=== PATIENT | male | born 2000 | race Caucasian/White ===

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

== ENCOUNTER 2020-01-06 16:20 | Emergency (ER) | payer BC, MEDICAID ==
[~2020-01-06] VITALS: Ht 182 cm; Wt 131.0 kg
--- NOTE | 2020-01-06 16:33 | NUR ---
SPRITE GIVEN FOR BLOOD SUGAR OF 81 PER JAMAR'S REQUEST.
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
--- NOTE | 2020-01-06 17:22 | NUR ---
UP AMBULATING TO THE BATHROOM.
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
[2020-01-06 17:30] LABS: BILIRUBIN,URINE NEGATIVE (NEGATIVE); CLARITY,URINE CLEAR; COLOR,URINE YELLOW; GLUCOSE, URINE (UA) NEGATIVE (NEGATIVE); KETONES,URINE NEGATIVE (NEGATIVE); LEUKOCYTE ESTERASE ,URINE NEGATIVE (NEGATIVE); NITRITE,URINE NEGATIVE (NEGATIVE); PH,URINE 6.5 (5-9); PROTEIN,URINE NEGATIVE (NEGATIVE)
[2020-01-06 17:40] LABS: BACTERIA,URINE TRACE /HPF
[2020-01-06 17:41] LABS: HYALINE CASTS, URINE 0-2 /LPF
--- NOTE | 2020-01-06 17:42 | NUR ---
REPORT GIVEN TO HORTENCIA HOOKER.
== END 2020-01-06 18:00 | disposition home or self-care (01) ==
LOC: EDUNIT# 16:20 → ER 16:21
DX: R10.9 Unspecified abdominal pain (principal); M25.562 Pain in left knee; R40.2142 Coma scale, eyes open, spontaneous, at arrival to emergency department; R40.2252 Coma scale, best verbal response, oriented, at arrival to emergency department; R40.2362 Coma scale, best motor response, obeys commands, at arrival to emergency department; F17.290 Nicotine dependence, other tobacco product, uncomplicated; V49.40XA Driver injured in collision with unspecified motor vehicles in traffic accident, initial encounter
CPT/HCPCS: 73562; 74176; 81000

== ENCOUNTER → 2021-11-13 | Outpatient (CLI) | payer BC, OTHER ==
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
== END ==
LOC: RAD 15:24
PROVIDERS: ATTEND Family Medicine
DX: S83.92XA Sprain of unspecified site of left knee, initial encounter (principal); Y93.54 Activity, bowling
CPT/HCPCS: 73562

== ENCOUNTER 2022-03-20 01:01 | Emergency (ER) | payer OTHER ==
[2022-03-20 01:29] VITALS: BP 113/75
[2022-03-20 02:11] LABS: CLARITY,URINE SL CLOUDY; COLOR,URINE ORANGE; GLUCOSE, URINE (UA) NEGATIVE (NEGATIVE); KETONES,URINE TRACE (NEGATIVE); LEUKOCYTE ESTERASE ,URINE NEGATIVE (NEGATIVE); NITRITE,URINE NEGATIVE (NEGATIVE); PROTEIN,URINE 2+ (NEGATIVE)
[2022-03-20 02:16] LABS: BASOPHILS # (AUTO) 0.1 10^3/uL (0.0-0.1); BASOPHILS % (AUTO) 1 % (0-10); EOSINOPHILS % (AUTO) 0 % (0-10); HEMATOCRIT 48 % (40-54); LYMPHOCYTES # (AUTO) 2.6 10^3/uL (1.0-4.0); LYMPHOCYTES % (AUTO) 24 % (12-44); MEAN CORPUSCULAR HEMOGLOBIN 30 pg (25-34); MEAN CORPUSCULAR HGB CONC 35 g/dL (32-36); MEAN CORPUSCULAR VOLUME 86 fL (80-99); MEAN PLATELET VOLUME 10.4 fL (9.0-12.2); MONOCYTES % (AUTO) 9 % (0-12); NEUTROPHILS # (AUTO) 7.4 10^3/uL (1.8-7.8); NEUTROPHILS % (AUTO) 66 % (42-75); PLATELET COUNT 243 10^3/uL (130-400); WHITE BLOOD COUNT 11.1 10^3/uL (4.3-11.0)
[2022-03-20 02:25] LABS: BACTERIA,URINE NEGATIVE /HPF; BILIRUBIN,URINE 1+ (NEGATIVE)
[2022-03-20 02:27] LABS: ALBUMIN 4.7 GM/DL (3.2-4.5); CHLORIDE 100 MMOL/L (98-107)
[2022-03-20 02:28] LABS: POTASSIUM 3.9 MMOL/L (3.6-5.0); SODIUM 140 MMOL/L (135-145)
[2022-03-20 02:29] LABS: CALCIUM 9.8 MG/DL (8.5-10.1)
[2022-03-20 02:30] LABS: GLUCOSE 98 MG/DL (70-105); TOTAL PROTEIN 7.9 GM/DL (6.4-8.2)
[2022-03-20 02:31] LABS: CARBON DIOXIDE 26 MMOL/L (21-32)
[2022-03-20 02:33] LABS: ALKALINE PHOSPHATASE 62 U/L (40-136)
[2022-03-20 02:34] LABS: CREATININE SERUM 1.17 MG/DL (0.60-1.30); GFR ESTIMATED 91
[2022-03-20 02:35] LABS: BUN/CREATININE RATIO 11
[2022-03-20 02:36] LABS: ALANINE AMINOTRANSFERASE 19 U/L (0-55)
[2022-03-20 02:37] LABS: LIPASE 8 U/L (8-78)
[2022-03-20] MEDS ORDERED: LACTATED RINGERS 1,000 ML IV ONE (02:45)
--- NOTE | 2022-03-20 04:32 | ED Abdominal Pain ---
General Chief Complaint: Chest Wall Stated Complaint: RT SIDE & UNDER RIBS PAIN,STS NO FALL Nursing Triage Note: pt presents with right chest wall/rib pain that he reports has been intermittent for two days. reports the pain is worse with deep breathing. denies cough. denies sob. denies n/v/d. Source of Information: Patient Exam Limitations: No Limitations History of Present Illness Date Seen by Provider: Mar 20, 2022 Time Seen by Provider: 01:52 Initial Comments This 21-year-old young man presents to the emergency room with complaints of 2 days of right flank pain that is sharp and stabbing. It is worse with deep breathing. He reports binge drinking a significant amount of alcohol over the past 4 5 days going through stressful life situations. He denies any suicidal or homicidal ideation. He has no nausea, vomiting, diarrhea, or constipation. He denies ever having this pain in the past. Pain seems to come and intermittent waves. He denies fever. Pain is worse when he sits down. Ibuprofen and Tylenol have not been particularly helpful. He has noticed some dark urine recently but no maría hematuria. Allergies and Home Medications Allergies Coded Allergies: No Known Drug Allergies (Unverified , 11/09/10) Patient Home Medication List Home Medication List Reviewed: Yes No Active Prescriptions or Reported Meds Review of Systems Review of Systems Constitutional: no symptoms reported EENTM: No Symptoms Reported Respiratory: See HPI Cardiovascular: No Symptoms Reported Gastrointestinal: See HPI Genitourinary: No Symptoms Reported Musculoskeletal: no symptoms reported Skin: no symptoms reported Psychiatric/Neurological: See HPI Endocrine: No Symptoms Reported Hematologic/Lymphatic: No Symptoms Reported Past Ndqjdub-Ptvvcw-Neyqeh Hx Patient Social History Tobacco Use?: No Substance use?: No Alcohol Use?: Yes Alcohol Frequency: Couple times a week Pt feels they are or have been: No Immunizations Up To Date Influenza Vaccine Up-to-Date: No; Not Current First/Initial COVID19 Vaccinat: unknown date Second COVID19 Vaccination Eko: unknown date Seasonal Allergies Seasonal Allergies: No Past Medical History Surgeries: Yes (DENTAL 01/05/2020) Respiratory: No Cardiac: No Neurological: No Genitourinary: No Gastrointestinal: No Musculoskeletal: No Endocrine: No HEENT: No Cancer: No Psychosocial: No Physical Exam Vital Signs Vital Signs - First Documented Capillary Refill : Height/Weight/BMI Height: '" Weight: 119lbs. oz. 53.165371nn; 39.00 BMI Method:Stated General Appearance: WD/WN, no apparent distress HEENT: PERRL/EOMI, normal ENT inspection Neck: normal inspection Respiratory: chest non-tender, lungs clear, normal breath sounds, no respiratory distress Cardiovascular: regular rate, rhythm, no edema, no murmur Gastrointestinal: normal bowel sounds, soft, tenderness (Tenderness in the right flank and right upper quadrant) Extremities: normal inspection, no pedal edema Neurologic/Psychiatric: no motor/sensory deficits, alert, normal mood/affect, oriented x 3 Skin: normal color, warm/dry Progress/Results/Core Measures Results/Orders Lab Results Laboratory Tests Test 03/20/22 02:09 03/20/22 02:10 Range/Units Urine Color ORANGE Urine Clarity SL CLOUDY Urine pH 6.0 5-9 Urine Specific [place] >=1.030 1.016-1.022 Urine Protein 2+ H NEGATIVE Urine Glucose (UA) NEGATIVE NEGATIVE Urine Ketones TRACE H NEGATIVE Urine Nitrite NEGATIVE NEGATIVE Urine Bilirubin 1+ H NEGATIVE Urine Urobilinogen 1.0 < = 1.0 MG/DL Urine Leukocyte Esterase NEGATIVE NEGATIVE Urine RBC (Auto) TRACE-I H NEGATIVE Urine RBC 2-5 H /HPF Urine WBC NONE /HPF Urine Squamous Epithelial Cells 5-10 /HPF Urine Crystals NONE /LPF Urine Bacteria NEGATIVE /HPF Urine Casts PRESENT /LPF Urine Hyaline Casts 10-25 H /LPF Urine Mucus LARGE H /LPF Urine Culture Indicated NO White Blood Count 11.1 H 4.3-11.0 10^3/uL Red Blood Count 5.60 H 4.30-5.52 10^6/uL Hemoglobin 17.0 13.3-17.7 g/dL Hematocrit 48 40-54 % Mean Corpuscular Volume 86 80-99 fL Mean Corpuscular Hemoglobin 30 25-34 pg Mean Corpuscular Hemoglobin Concent 35 32-36 g/dL Red Cell Distribution Width 12.0 10.0-14.5 % Platelet Count 243 130-400 10^3/uL Mean Platelet Volume 10.4 9.0-12.2 fL Immature Granulocyte % (Auto) 0 % Neutrophils (%) (Auto) 66 42-75 % Lymphocytes (%) (Auto) 24 12-44 % Monocytes (%) (Auto) 9 0-12 % Eosinophils (%) (Auto) 0 0-10 % Basophils (%) (Auto) 1 0-10 % Neutrophils # (Auto) 7.4 1.8-7.8 10^3/uL Lymphocytes # (Auto) 2.6 1.0-4.0 10^3/uL Monocytes # (Auto) 1.0 0.0-1.0 10^3/uL Eosinophils # (Auto) 0.0 0.0-0.3 10^3/uL Basophils # (Auto) 0.1 0.0-0.1 10^3/uL Immature Granulocyte # (Auto) 0.0 0.0-0.1 10^3/uL Sodium Level 140 135-145 MMOL/L Potassium Level 3.9 3.6-5.0 MMOL/L Chloride Level 100 98-107 MMOL/L Carbon Dioxide Level 26 21-32 MMOL/L Anion Gap 14 5-14 MMOL/L Blood Urea Nitrogen 13 7-18 MG/DL Creatinine 1.17 0.60-1.30 MG/DL Estimat Glomerular Filtration Rate 91 BUN/Creatinine Ratio 11 Glucose Level 98 70-105 MG/DL Calcium Level 9.8 8.5-10.1 MG/DL Corrected Calcium 8.5-10.1 MG/DL Total Bilirubin 2.0 H 0.1-1.0 MG/DL Aspartate Amino Transf (AST/SGOT) 15 5-34 U/L Alanine Aminotransferase (ALT/SGPT) 19 0-55 U/L Alkaline Phosphatase 62 40-136 U/L Total Protein 7.9 6.4-8.2 GM/DL Albumin 4.7 H 3.2-4.5 GM/DL Lipase 8 8-78 U/L My Orders Orders - RICH MCCOLLUM MD Cbc With Automated Diff (03/20/22 02:00) Comprehensive Metabolic Panel (03/20/22 02:00) Lipase (03/20/22 02:00) Ua Culture If Indicated (03/20/22 02:00) Ed Iv/Invasive Line Start (03/20/22 02:00) Lactated Ringers (Lr 1000 Ml Iv Solution (03/20/22 02:45) Ct Abd/Pelvis Wo(Kidney Stone) (03/20/22 02:42) Medications Given in ED Current Medications Medications Dose Ordered Sig/Louie Route Start Time Stop Time Status Last Admin Dose Admin Lactated Ringer's 1,000 ml @ 0 mls/hr Q0M ONCE IV 03/20/22 02:45 03/20/22 02:46 DC 03/20/22 02:45 0 MLS/HR Vital Signs/I&O 03/20/22 03/20/22 01:29 01:29 Temp 37.1 Pulse 97 Resp 18 B/P (MAP) 113/75 (88) Pulse Ox 96 O2 Delivery Room Air Room Air Blood Pressure Mean: 88 Progress Progress Note : Progress Note Urine was concentrated with casts and ketones present. Patient was hydrated with IV fluids. He had scant amount of blood in his urine. CT scan was offered to evaluate his gallbladder and for possible presence of ureteral stone. Risks and benefits were discussed and patient elected to proceed with CT scan. No significant pathology was identified. See discharge instructions for further discussion. Patient declined pain medication. Diagnostic Imaging Diagonstic Imaging: CT Plain Films/CT/US/NM/MRI: abdomen, pelvis Comments CT scan viewed by me and report reviewed. See report below: NAME: DILAN VALDIVIA [facility] REC#: [id number] PT STATUS: DEP ER : 2000 PHYSICIAN: RICH MCCOLLUM MD ADMIT DATE: 03/20/22/ER Draft Date of Exam:03/20/22 CT ABD/PELVIS WO(KIDNEY STONE) PROCEDURE: CT urinary tract, rule out kidney stone. TECHNIQUE: Multiple contiguous axial images were obtained through the abdomen and pelvis without the use of intravenous contrast. Auto Exposure Controls were utilized during the CT exam to meet ALARA standards for radiation dose reduction. INDICATION: Flank pain. Comparison with 01/06/2020. FINDINGS: The lung bases are clear. The liver, gallbladder and bile ducts are normal. Pancreas and spleen are normal. Adrenal glands are not enlarged. The kidneys show no evidence of hydronephrosis or calculi. Outlines are smooth. Aorta is normal. Stomach and small bowel are not distended. The colon shows normal stool and gas pattern. Appendix is not dilated. Bladder is not distended. There is no free air or free fluid. No intra-abdominal adenopathy. No bony abnormalities. IMPRESSION: Normal CT abdomen and pelvis. These findings are in agreement with the preliminary report. Dictated on workstation # [id number] Dict: 03/20/22 0629 Trans: 03/20/22 0632 [facility] [id number] Interpreted by: AB RODRIGUEZ MD Departure Impression Primary Impression: Right flank pain Additional Impression: Alcohol dependence, binge pattern Disposition: 01 HOME, SELF-CARE Condition: Improved Departure-Patient Inst. Decision time for Depature: 04:30 Referrals: ZULY GRISSOM MD (PCP/Family) Primary Care Physician Patient Instructions: ALCOHOL AND SUBSTANCE ABUSE, Abdominal Pain, Adult ED Add. Discharge Instructions: Start with a noncarbonated clear liquid diet and adhere to mostly a clear liquid diet for the rest of today. Then gradually advance your diet with small quantities of bland food as tolerated. Refrain from further alcohol use. For abdominal pain you may try Tylenol (acetaminophen) up to 1000 mg every 6 hours as needed. You may additionally try antacid medications such as Pepcid (famotidine), omeprazole, Tums, etc. purchased [id number]. Follow-up with Dr. Grissom as soon as possible. Return to the ER if you have worsening symptoms despite following these instructions. All discharge instructions reviewed with patient and/or family. Voiced understanding. Scripts No Active Prescriptions or Reported Meds Copy Copies To 1: ZULY GRISSOM MD, JOSHUA T MD Mar 20, 2022 04:31
--- NOTE | 2022-03-20 06:33 | Diagnostic Imaging Report ---
PROCEDURE: CT urinary tract, rule out kidney stone. TECHNIQUE: Multiple contiguous axial images were obtained through the abdomen and pelvis without the use of intravenous contrast. Auto Exposure Controls were utilized during the CT exam to meet ALARA standards for radiation dose reduction. INDICATION: Flank pain. Comparison with 01/06/2020. FINDINGS: The lung bases are clear. The liver, gallbladder and bile ducts are normal. Pancreas and spleen are normal. Adrenal glands are not enlarged. The kidneys show no evidence of hydronephrosis or calculi. Outlines are smooth. Aorta is normal. Stomach and small bowel are not distended. The colon shows normal stool and gas pattern. Appendix is not dilated. Bladder is not distended. There is no free air or free fluid. No intra-abdominal adenopathy. No bony abnormalities. IMPRESSION: Normal CT abdomen and pelvis. These findings are in agreement with the preliminary report. Dictated by: Dictated on workstation # [id number]
== END 2022-03-20 04:39 | disposition home or self-care (01) ==
LOC: EDUNIT# 01:01 → ER 01:05
DX: F10.20 Alcohol dependence, uncomplicated (principal); R10.11 Right upper quadrant pain
CPT/HCPCS: 36415; 74176; 80053; 81000; 83690; 85025; 99282

== ENCOUNTER 2022-04-27 20:55 | Emergency (ER) | payer OTHER ==
[~2022-04-27] VITALS: Ht 193 cm; Wt 113.0 kg
[2022-04-27] MEDS ORDERED: KETOROLAC 60 MG/2 ML VIAL IM ONE (23:30)
[2022-04-27] MEDS ORDERED: ORPHENADRINE 60 MG/2 ML (NORFLEX) AMP (ED ONLY) IM ONE (23:30)
[2022-04-27] MEDS ORDERED: methylPREDNISolone 40 MG/ML (DEPO MEDROL) VIAL IM ONE (23:30)
--- NOTE | 2022-04-27 23:31 | ED Back Pain ---
General Chief Complaint: Back Problems Stated Complaint: LOW BACK PAIN Nursing Triage Note: c/o lower back pain after lifting dryer into truck today. Source of Information: Patient Exam Limitations: No Limitations History of Present Illness Date Seen by Provider: Apr 27, 2022 Time Seen by Provider: 23:00 Initial Comments Patient to the ER by private conveyance with his significant other with chief complaint that about noon he was lifting a dryer to help his friend move and he started having some pain in his low back. He had a pinched disc in the past. He is not having any pain radiating away from the side of his right low back. He has taken naproxen 500 mg and ibuprofen 8 oh milligrams without significant relief of pain. He feels stiff and hard to move. Is not having any loss of control of bowel or bladder, saddle anesthesia, numbness, tingling, falls due to weakness. No prior back surgery. He follows with Dr. Grissom for primary care. Allergies and Home Medications Allergies Coded Allergies: No Known Drug Allergies (Unverified , 11/09/10) Patient Home Medication List Home Medication List Reviewed: Yes Cyclobenzaprine HCl (Cyclobenzaprine HCl) 10 Mg Tablet, 10 MG PO Q8H PRN for SPASMS Prescribed by: SHIREEN PENG on 04/27/222331 Naproxen (Naprosyn) 500 Mg Tablet, 500 MG PO BID Prescribed by: SHIREEN PENG on 04/27/222331 Review of Systems Constitutional: No chills, No diaphoresis EENTM: No ear discharge, No ear pain Respiratory: No cough, No short of breath Cardiovascular: No chest pain, No edema Gastrointestinal: No see HPI, No abdominal pain Genitourinary: No frequency, No pain Past Pzgtbyx-Zbzibd-Jjucle Hx Patient Social History Tobacco Use?: No Substance use?: No Alcohol Use?: No Pt feels they are or have been: No Immunizations Up To Date First/Initial COVID19 Vaccinat: unknown date Second COVID19 Vaccination Keo: unknown date Third COVID19 Vaccination Date: unknown date Seasonal Allergies Seasonal Allergies: No Past Medical History Surgery/Hospitalization HX: depression, ch lower back pain/slipped disc. Surgeries: Yes (DENTAL 01/05/2020) Respiratory: No Cardiac: No Neurological: No Genitourinary: No Gastrointestinal: No Musculoskeletal: No Endocrine: No HEENT: No Cancer: No Psychosocial: No Physical Exam Vital Signs Vital Signs - First Documented 04/27/22 22:38 Temp 37.0 Pulse 62 Resp 16 B/P (MAP) 125/71 (89) Pulse Ox 98 O2 Delivery Room Air Capillary Refill : Less Than 3 Seconds Height, Weight, BMI Height: '" Weight: 119lbs. oz. 53.915118gx; 30.00 BMI Method:Stated General Appearance: WD/WN, Mild Distress HEENT: PERRL/EOMI, Pharynx Normal Neck: Full Range of Motion, Normal Inspection Cardiovascular: Regular Rate, Rhythm, Normal Peripheral Pulses Respiratory: No Accessory Muscle Use, No Respiratory Distress Gastrointestinal: Normal Bowel Sounds, No Organomegaly Extremity: Normal Capillary Refill, Normal Inspection, No Pedal Edema Neurologic/Psychiatric: Alert, Oriented x3, No Motor/Sensory Deficits Skin: Normal Color, Warm/Dry Progress/Results/Core Measures Results/Orders My Orders Orders - SHIREEN PENG Ketorolac Injection (Toradol Injection) (04/27/22 23:30) Orphenadrine Inj (Ed Only) (Norflex Inje (04/27/22 23:30) Methylprednisolone Acetate Inj (Depo-Med (04/27/22 23:30) Medications Given in ED Current Medications Medications Dose Ordered Sig/Louie Route Start Time Stop Time Status Last Admin Dose Admin Ketorolac Tromethamine 60 mg ONCE ONCE IM 04/27/22 23:30 04/27/22 23:31 DC 04/27/22 23:33 60 MG Methylprednisolone Acetate 40 mg ONCE ONCE IM 04/27/22 23:30 04/27/22 23:31 DC 04/27/22 23:32 40 MG Orphenadrine Citrate 60 mg ONCE ONCE IM 04/27/22 23:30 04/27/22 23:31 DC 04/27/22 23:32 60 MG Vital Signs/I&O 04/27/22 04/27/22 04/27/22 22:38 23:33 23:43 Temp 37.0 37.0 36.7 Pulse 62 68 Resp 16 14 B/P (MAP) 125/71 (89) 118/97 Pulse Ox 98 99 O2 Delivery Room Air Room Air Blood Pressure Mean: 89 Progress Progress Note : Time: 23:27 Progress Note Toradol, Norflex, steroid injection and follow-up in a week. We will have him encouraged to go to physical therapy and/or chiropractory. We will give him some work restrictions and a couple days off from work. Patient is okay with this plan. Return precautions were given. Departure Impression Primary Impression: Lumbago without sciatica Qualified Codes: M54.50 - Low back pain, unspecified Disposition: 01 HOME, SELF-CARE Condition: Stable Departure-Patient Inst. Decision time for Depature: 23:28 Referrals: ZULY GRISSOM MD (PCP/Family) Primary Care Physician Patient Instructions: Low Back Pain (DC) Add. Discharge Instructions: Ice 20 minutes on every 2 hours as needed for pain in your low back for the first 2 to 3 days. Heating pads and topical creams such as icy hot or Biofreeze can be helpful. A back brace to be worn on all days that helps can be helpful for back pain. Continue to take naproxen 500 mg twice a day until your pain is improved. It takes 4 to 5 days to get this medication built up in your system to a full dose. Tylenol 1000 mg every 8 hours as needed for pain. Cyclobenzaprine 1 tablet every 8 hours as needed for muscle spasms in your back. Follow-up with either a chiropractor, physical therapy or both. Physical therapy be can reached at [phone]. All discharge instructions reviewed with patient and/or family. Voiced understanding. Scripts Cyclobenzaprine HCl (Cyclobenzaprine HCl) 10 Mg Tablet 10 MG PO Q8H PRN for SPASMS, #20 TAB 0 Refills Prov: SHIREEN PENG 04/27/22 Naproxen (Naprosyn) 500 Mg Tablet 500 MG PO BID, #30 TAB 0 Refills Prov: SHIREEN PENG 04/27/22 Work/School Note: Work Release Form Date Seen in the Emergency Department: Apr 27, 2022 Return to Work: May 01, 2022 Restrictions: Need Release from Doctor Other Restrictions Listed Below: 20 pound weight restriction until 05/06/2022. Restrictions: 40 pound weight restriction until 05/13/2022. Copy Copies To 1: ZULY GRISSOM MD, TITUS J Apr 27, 2022 23:31
[2022-04-27] MEDS ORDERED: CYCL10TA25 PO (23:32)
[2022-04-27] MEDS ORDERED: NAPR-1071 PO (23:32)
[2022-04-27 23:43] VITALS: BP 118/97
== END 2022-04-27 23:43 | disposition home or self-care (01) ==
LOC: EDUNIT# 20:55 → ER 20:57
DX: M54.50 Low back pain, unspecified (principal); Z87.39 Personal history of other diseases of the musculoskeletal system and connective tissue; X50.0XXA Overexertion from strenuous movement or load, initial encounter
CPT/HCPCS: 99284

== ENCOUNTER 2022-12-07 22:16 | Emergency (ER) | payer OTHER ==
[~2022-12-07] VITALS: Ht 190.5 cm; Wt 127.0 kg
[~2022-12-07 22:16] MED LIST changes: +CYCL10TA25 PO; -IOHEXOL 350 MG/ML 100 ML (OMNIPAQUE 350) VIAL IV ONE; +NAPR-1071 PO; -NS 250 ML (IVPB) BAG IV ONE
[2022-12-07 22:20] VITALS: BP 150/103
[2022-12-07] MEDS ORDERED: SERT-412 PO (22:25)
--- NOTE | 2022-12-07 22:30 | ED Abdominal Pain ---
General Chief Complaint: Abdominal/GI Problems Stated Complaint: RIGHT FLANK/LOWER ABD PAIN Nursing Triage Note: c/o intermittant stabbing mid abdominal pain x2 weeks. right flank pain x2 months. History of Present Illness Date Seen by Provider: Dec 07, 2022 Time Seen by Provider: 22:30 Initial Comments Patient is a 22-year-old male who presents to the emergency room with a chief complaint of chronic right flank pain over the last couple of months and mid abdominal pain and left upper quadrant abdominal pain that has been coming on over the last 2 weeks. Patient states the pain in his mid abdomen is worse specifically after eating. He states that every time he eats he feels like he wants to vomit. He states that he is lost about 15 pounds in 1 to 1-1/2 weeks. He denies diarrhea, black or bloody stool. No darker than normal urine or blood in his urine. No fevers or chills. He has been seen for this in the past by his primary care doctor. He does vape, does not smoke cigarettes. He takes Aleve and ibuprofen intermittently for discomfort. His last dose of Aleve was 500 mg at around noon today. Nothing makes his symptoms any better. Was concerned because the flank pain came back today. He has no history of known kidney stone. States when he was in the emergency room a few months ago with similar complaints he had blood in his urine. No evidence of infection. He is concerned that he might be dehydrated however no nausea or vomiting currently. Timing/Duration: Other (Months) Severity/Quality: Moderate Location: Epigastric, Other (Right flank) Radiation: No Radiation Activities at Onset: Other (Eating) Associated Symptoms: Nausea/Vomiting (Nausea without vomiting), Other (Flank pain) Allergies and Home Medications Allergies Coded Allergies: No Known Drug Allergies (Unverified , 11/09/10) Patient Home Medication List Home Medication List Reviewed: Yes Sertraline HCl (Sertraline HCl) 25 Mg Tablet, Unknown Dose PO, (Reported) Entered as Reported by: MANDA FRANKS on 12/07/222224 Last Action: New Order Discontinued Medications Cyclobenzaprine HCl (Cyclobenzaprine HCl) 10 Mg Tablet, 10 MG PO Q8H PRN for SPASMS Discontinued Reason: No Longer Taking Prescribed by: SHIREEN PENG on 04/27/22 2332 Last Action: Discontinued Naproxen (Naprosyn) 500 Mg Tablet, 500 MG PO BID Discontinued Reason: No Longer Taking Prescribed by: SHIREEN PENG on 04/27/22 2332 Last Action: Discontinued Review of Systems Review of Systems Constitutional: see HPI EENTM: No Symptoms Reported Respiratory: No Symptoms Reported Cardiovascular: No Symptoms Reported Gastrointestinal: Abdominal Pain Genitourinary: No Symptoms Reported Musculoskeletal: other (Flank pain) Skin: no symptoms reported Psychiatric/Neurological: No Symptoms Reported All Other Systems Reviewed Negative Unless Noted: Yes Past Vtvlxyg-Wiogfo-Vtypkh Hx Patient Social History Tobacco Use?: No Substance use?: No Alcohol Use?: Yes Alcohol Frequency: Once in a while Pt feels they are or have been: No Immunizations Up To Date First/Initial COVID19 Vaccinat: x2 Second COVID19 Vaccination Keo: unknown date Third COVID19 Vaccination Date: unknown date Seasonal Allergies Seasonal Allergies: No Past Medical History Surgery/Hospitalization HX: depression, ch lower back pain/slipped disc. Surgeries: Yes (DENTAL 01/05/2020) Respiratory: No Cardiac: No Neurological: No Genitourinary: No Gastrointestinal: No Musculoskeletal: No Endocrine: No HEENT: No Cancer: No Psychosocial: No Physical Exam Vital Signs Vital Signs - First Documented 12/07/22 22:20 Temp 36.6 Pulse 85 Resp 16 B/P (MAP) 150/103 (119) Pulse Ox 100 O2 Delivery Room Air Capillary Refill : Less Than 3 Seconds Height/Weight/BMI Height: '" Weight: 119lbs. oz. 53.165974yk; 34.00 BMI Method:Stated General Appearance: WD/WN, no apparent distress Neck: normal inspection Respiratory: lungs clear, normal breath sounds, no respiratory distress, no accessory muscle use Cardiovascular: regular rate, rhythm Gastrointestinal: normal bowel sounds, non tender, soft Extremities: normal range of motion, non-tender, normal inspection, normal capillary refill Back: no CVA tenderness Neurologic/Psychiatric: alert, normal mood/affect, oriented x 3 Skin: normal color, warm/dry Progress/Results/Core Measures Results/Orders Lab Results Laboratory Tests Test 12/07/22 22:25 Range/Units Urine Color YELLOW Urine Clarity CLEAR Urine pH 6.0 5-9 Urine Specific [place] >=1.030 1.016-1.022 Urine Protein NEGATIVE NEGATIVE Urine Glucose (UA) NEGATIVE NEGATIVE Urine Ketones NEGATIVE NEGATIVE Urine Nitrite NEGATIVE NEGATIVE Urine Bilirubin NEGATIVE NEGATIVE Urine Urobilinogen 0.2 < = 1.0 MG/DL Urine Leukocyte Esterase NEGATIVE NEGATIVE Urine RBC (Auto) NEGATIVE NEGATIVE Urine RBC NONE /HPF Urine WBC 2-5 /HPF Urine Squamous Epithelial Cells 0-2 /HPF Urine Crystals NONE /LPF Urine Bacteria TRACE /HPF Urine Casts NONE /LPF Urine Mucus SMALL H /LPF Urine Culture Indicated NO My Orders Orders - DOROTHY HOBBS MD Ua Culture If Indicated (12/07/22 22:40) Ondansetron Oral Dissolve Tab (Zofran (12/07/22 22:40) Pantoprazole Tablet (Protonix Tablet) (12/07/22 22:45) Medications Given in ED Current Medications Medications Dose Ordered Sig/Louie Route Start Time Stop Time Status Last Admin Dose Admin Pantoprazole Sodium 40 mg ONCE ONCE PO 12/07/22 22:45 12/07/22 22:46 DC 12/07/22 22:51 40 MG Vital Signs/I&O 12/07/22 22:20 Temp 36.6 Pulse 85 Resp 16 B/P (MAP) 150/103 (119) Pulse Ox 100 O2 Delivery Room Air Blood Pressure Mean: 119 Departure Impression Primary Impression: Abdominal pain Qualified Codes: R10.9 - Unspecified abdominal pain Additional Impression: Dyspepsia Disposition: 01 HOME, SELF-CARE Condition: Stable Departure-Patient Inst. Decision time for Depature: 23:02 Referrals: ZULY GRISSOM MD (PCP/Family) Primary Care Physician Patient Instructions: Dyspepsia (DC) Add. Discharge Instructions: Start taking an fcdm-nrj-hdkinag acid doctor of medicine such as generic Prilosec or Pepcid. Pick 1 and please follow packaging instructions. Zofran/ondansetron 4 mg tablets 1 every 8 hours as needed for nausea. You should stop vaping. If you are going to take ibuprofen or Aleve, stick to one of the other and always take this medication with food. If you develop a fever, worsening pain, blood in your stool please return to the emergency room for reevaluation. Please call your primary care doctor's office on Friday for a follow-up appointment for further evaluation and management of these issues. Scripts Ondansetron (Ondansetron Odt) 4 Mg Tab.rapdis 4 MG PO Q8H PRN for NAUSEA/VOMITING, #10 TAB 0 Refills Prov: DOROTHY HOBBS MD 12/07/22 Copy Copies To 1: ZULY GRISSOM MD, KATHRYN M MD Dec 07, 2022 22:30
[2022-12-07] MEDS ORDERED: ONDANSETRON 4 MG (ZOFRAN) ORAL DISSOLVE TAB PO STA (22:40)
[2022-12-07] MEDS ORDERED: PANTOPRAZOLE 40 MG (PROTONIX) TAB PO ONE (22:45)
[2022-12-07 22:46] LABS: BILIRUBIN,URINE NEGATIVE (NEGATIVE); CLARITY,URINE CLEAR; COLOR,URINE YELLOW; GLUCOSE, URINE (UA) NEGATIVE (NEGATIVE); KETONES,URINE NEGATIVE (NEGATIVE); LEUKOCYTE ESTERASE ,URINE NEGATIVE (NEGATIVE); NITRITE,URINE NEGATIVE (NEGATIVE); PROTEIN,URINE NEGATIVE (NEGATIVE)
[2022-12-07 22:56] LABS: BACTERIA,URINE TRACE /HPF; SQUAMOUS EPITHELIAL CELL,UR 0-2 /HPF
[2022-12-07] MEDS ORDERED: ONDA4TAB11 PO (23:04)
== END 2022-12-07 23:06 | disposition home or self-care (01) ==
LOC: EDUNIT# 22:16 → ER 22:18
DX: R10.13 Epigastric pain (principal); F17.290 Nicotine dependence, other tobacco product, uncomplicated
CPT/HCPCS: 81000; 99283

== ENCOUNTER 2023-04-15 20:12 | Emergency (ER) | payer OTHER ==
[~2023-04-15] VITALS: Ht 193 cm; Wt 122.0 kg
[~2023-04-15 20:12] MED LIST changes: +ONDA4TAB11 PO; +SERT-412 PO
[2023-04-15 20:23] VITALS: BP 149/79
--- NOTE | 2023-04-15 20:43 | ED Upper Extremity ---
General Chief Complaint: Upper Extremity Stated Complaint: LEFT WRIST INJURY Nursing Triage Note: PATIENT STATES WHILE AT WORK A ROLLING METAL DOOR SLAMMED DOWN ON LEFT WRIST. LEFT WRIST PAINFUL/RED Source: patient Exam Limitations: no limitations History of Present Illness Date Seen by Provider: Apr 15, 2023 Time Seen by Provider: 20:35 Initial Comments 22-year-old male presents to the ER with left wrist/lower forearm injury. 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 He presents with pain and swelling to left wrist/forearm. States he has not taken any pain medications. Allergies and Home Medications Allergies Coded Allergies: No Known Drug Allergies (Unverified , 11/09/10) Patient Home Medication List Home Medication List Reviewed: Yes Ondansetron (Ondansetron Odt) 4 Mg Tab.rapdis, 4 MG PO Q8H PRN for NAUSEA/VOMITING Prescribed by: DOROTHY HOBBS on 12/07/224 Sertraline HCl (Sertraline HCl) 25 Mg Tablet, Unknown Dose PO, (Reported) Entered as Reported by: MANDA FRANSK on 12/07/222224 Review of Systems Constitutional: see HPI Past Rtokjxw-Valvgl-Khnolj Hx Immunizations Up To Date First/Initial COVID19 Vaccinat: x2 Second COVID19 Vaccination Keo: x2 Third COVID19 Vaccination Date: x2 Seasonal Allergies Seasonal Allergies: No Past Medical History Surgery/Hospitalization HX: depression, ch lower back pain/slipped disc. Surgeries: Yes (DENTAL 01/05/2020) Respiratory: No Cardiac: No Neurological: No Genitourinary: No Gastrointestinal: No Musculoskeletal: No Endocrine: No HEENT: No Cancer: No Psychosocial: No Physical Exam Vital Signs Vital Signs - First Documented 04/15/23 20:23 Temp 37.0 Pulse 91 Resp 18 B/P (MAP) 149/79 (102) Pulse Ox 99 O2 Delivery Room Air Capillary Refill : Less Than 3 Seconds Height, Weight, BMI Height: '" Weight: 119lbs. oz. 53.993046aj; 32.00 BMI Method:Stated General Appearance: WD/WN, no apparent distress Neck: supple, normal inspection Cardiovascular: regular rate, rhythm Respiratory: lungs clear, normal breath sounds, no respiratory distress, no ac cessory muscle use Wrist: Yes normal ROM (Pain with range of motion of), Yes abrasions, Yes pain, Yes soft tissue tenderness, Yes swelling Neurologic/Psychiatric: alert, normal mood/affect Skin: normal color, warm/dry Progress/Results/Core Measures Results/Orders My Orders Orders - CASIMIRO DORSEY APRN Wrist, Left, 3 Views Or More (04/15/23 20:34) Forearm, Left, 2 Views (04/15/23 21:11) Vital Signs/I&O 04/15/23 20:23 Temp 37.0 Pulse 91 Resp 18 B/P (MAP) 149/79 (102) Pulse Ox 99 O2 Delivery Room Air Blood Pressure Mean: 102 Progress Progress Note : Progress Note Patient seen and evaluated, resting comfortably in recliner, no acute distress. X-ray of left wrist ordered. Departure Impression Primary Impression: Contusion of wrist Disposition: HOME, SELF-CARE Condition: Stable Departure-Patient Inst. Decision time for Depature: 21:44 Referrals: ZULY GRISSOM MD (PCP/Family) Primary Care Physician Patient Instructions: Contusion (DC) Add. Discharge Instructions: Apply ice to area for 20 minutes at a time several times a day. You may take 1000 mg of Tylenol every 8 hours as needed for pain. You may also take 800 mg of ibuprofen every 8 hours with food as needed for pain. Return for any new, concerning, or worsening symptoms. All discharge instructions reviewed with patient and/or family. Voiced understanding. Work/School Note: Work Release Form Date Seen in the Emergency Department: Apr 15, 2023 Return to Work: Apr 16, 2023 Other Restrictions Listed Below: No lifting over 10 pounds for 3 days. CASIMIRO DORSEY APRN Apr 15, 2023 20:43
--- NOTE | 2023-04-15 21:21 | Diagnostic Imaging Report ---
EXAM: WRIST, LEFT, 3 VIEWS OR MORE INDICATION: Left wrist pain and trauma. COMPARISON: None. FINDINGS: No fracture or malalignment. Soft tissue shadows are unremarkable. IMPRESSION: Negative left wrist radiographs. Dictated by: Dictated on workstation # [id number]
--- NOTE | 2023-04-15 21:35 | Diagnostic Imaging Report ---
EXAM: FOREARM, LEFT, 2 VIEWS INDICATION: Left forearm pain. COMPARISON: Left wrist radiographs 04/15/2023. FINDINGS: No fracture or malalignment. Soft tissue shadows are unremarkable. IMPRESSION: No acute radiographic findings in the left forearm. Dictated by: Dictated on workstation # [id number]
== END 2023-04-15 21:50 | disposition home or self-care (01) ==
LOC: EDUNIT# 20:12 → ER 20:16
DX: S60.212A Contusion of left wrist, initial encounter (principal); W20.8XXA Other cause of strike by thrown, projected or falling object, initial encounter; Y92.59 Other trade areas as the place of occurrence of the external cause; Y99.0 Civilian activity done for income or pay
CPT/HCPCS: 73090; 73110

== ENCOUNTER 2023-05-05 00:46 | Emergency (ER) | payer OTHER ==
[~2023-05-05] VITALS: Ht 196 cm; Wt 120.2 kg
--- NOTE | 2023-05-05 01:09 | ED Chest Pain ---
General Chief Complaint: Chest Wall Stated Complaint: SHARP STABBING PAIN IN CHEST Nursing Triage Note: PT AMB TO RM 6 W C/O STABBING CP WORSE W DEEP BREATHING SX 2200 THAT HAS BEEN INTERMITTENT FOR THE PAST 2-3 MONTHS. PT A&OX4. Source: patient Exam Limitations: no limitations History of Present Illness Date Seen by Provider: May 05, 2023 Time Seen by Provider: 00:55 Initial Comments This 22-year-old young man presents to the emergency room with complaints of 2- 1/2 to 3 months of intermittent sharp central chest pain that is worse with deep breathing and running. He does not notice the pain when he first wakes up in the morning. Ibuprofen is not helpful. He denies any travel or being sedentary prior to onset. He has not had any cough, fever, or chills. He vapes but does not smoke, drink alcohol, or use any illicit drugs. He came in tonight because the pain was more severe than usual. Allergies and Home Medications Allergies Coded Allergies: No Known Drug Allergies (Unverified , 11/09/10) Patient Home Medication List Home Medication List Reviewed: Yes Ondansetron (Ondansetron Odt) 4 Mg Tab.rapdis, 4 MG PO Q8H PRN for NAUSEA/VOMITING Prescribed by: DOROTHY HOBBS on 12/07/22 2304 Pantoprazole Sodium (Protonix) 40 Mg Tablet.dr, 40 MG PO DAILY Prescribed by: RICH LANDERS on 05/05/23 0159 Sertraline HCl (Sertraline HCl) 25 Mg Tablet, Unknown Dose PO, (Reported) Entered as Reported by: MANDA FRANKS on 12/07/222224 Review of Systems Review of Systems Constitutional: no symptoms reported EENTM: No Symptoms Reported Respiratory: See HPI Cardiovascular: See HPI Gastrointestinal: No Symptoms Reported Genitourinary: No Symptoms Reported Musculoskeletal: see HPI Skin: no symptoms reported Psychiatric/Neurological: No Symptoms Reported Endocrine: No Symptoms Reported Hematologic/Lymphatic: No Symptoms Reported Past Rqvdjfs-Rmxshs-Yjojhb Hx Patient Social History Tobacco Use?: No Use of E-Cig and/or Vaping dev: Yes E-Cig or Vaping type used: Nicotine Use of E-Cig and/or Vaping Elmer: Current Everyday User Substance use?: No Alcohol Use?: No Immunizations Up To Date First/Initial COVID19 Vaccinat: x2 Second COVID19 Vaccination Keo: x2 Third COVID19 Vaccination Date: x2 Seasonal Allergies Seasonal Allergies: No Past Medical History Surgery/Hospitalization HX: depression, ch lower back pain/slipped disc. Surgeries: Yes (DENTAL 01/05/2020) Respiratory: No Cardiac: No Neurological: No Genitourinary: No Gastrointestinal: No Musculoskeletal: No Endocrine: No HEENT: No Cancer: No Psychosocial: No Physical Exam Vital Signs Vital Signs - First Documented 05/05/23 00:53 Temp 36.8 Pulse 85 Resp 18 B/P (MAP) 150/89 (109) Pulse Ox 99 O2 Delivery Room Air Capillary Refill : Less Than 3 Seconds Height, Weight, BMI Height: '" Weight: 119lbs. oz. 53.375187un; 31.00 BMI Method:Stated General Appearance: No Apparent Distress, WD/WN HEENT: Normal ENT Inspection Neck: Normal Inspection; No JVD Respiratory: Lungs Clear, Normal Breath Sounds, No Accessory Muscle Use, No Respiratory Distress, Other (Pain reproducible on palpation of the left upper chest) Cardiovascular: Regular Rate, Rhythm, No Edema, No Murmur Gastrointestinal: Non Tender, Soft; No Distended Extremity: Normal Inspection, Non Tender, No Pedal Edema Neurologic/Psychiatric: Alert, Oriented x3, No Motor/Sensory Deficits, Normal Mood/Affect Skin: Normal Color, Warm/Dry Progress/Results/Core Measures Results/Orders Lab Results Laboratory Tests Test 05/05/23 01:00 Range/Units Troponin I < 0.028 <0.028 NG/ML My Orders Orders - RICH MCCOLLUM MD Ondansetron Injection (Ondansetron Inj (05/05/23 01:15) Lidocaine 2% Viscous 15 Ml (Xylocaine Vi (05/05/23 01:15) Antacid Suspension (Antacid Suspension (05/05/23 01:15) Ed Iv/Invasive Line Start (05/05/23 01:05) Ekg Tracing (05/05/23 01:05) Monitor-Rhythm Ecg Trace Only (05/05/23 01:05) Troponin I Ruddy (05/05/23 01:05) Chest Pa/Lat (2 View) (05/05/23 01:05) Pantoprazole Tablet (Pantoprazole Tablet (05/05/23 01:45) Medications Given in ED Vital Signs/I&O 05/05/23 05/05/23 00:53 02:00 Temp 36.8 Pulse 85 85 Resp 18 20 B/P (MAP) 150/89 (109) 146/86 Pulse Ox 99 99 O2 Delivery Room Air Room Air Blood Pressure Mean: 109 Progress Progress Note : Progress Note Troponin, two view chest x-ray and ECG were reviewed and were unremarkable by my interpretation. Patient was treated with GI cocktail with some improvement. He was further treated with Protonix. See discharge instructions fur further discussion. Initial ECG Impression Date: May 05, 2023 Initial ECG Impression Time: 01:00 Initial ECG Rate: 79 Initial ECG Rhythm: Normal Sinus Initial ECG Intervals: Normal Initial ECG Impression: Normal Comment Normal sinus rhythm with no ST elevation or depression. No abnormal intervals or axis deviation. Diagnostic Imaging Diagonstic Imaging: Xray Plain Films/CT/US/NM/MRI: chest Comments 2 view chest x-ray reviewed by me. Report not yet available. No acute abnormalities were appreciated on my interpretation including pneumothorax, infiltrate, effusion, or consolidation. Departure Impression Primary Impression: Atypical chest pain Additional Impression: Pleuritic chest pain Disposition: HOME, SELF-CARE Condition: Improved Departure-Patient Inst. Decision time for Depature: 01:49 Referrals: ZULY GRISSOM MD (PCP/Family) Primary Care Physician Patient Instructions: Chest Pain That Is Not Caused by the Heart (DC), Acid Reflux and GERD in Adults (DC) Add. Discharge Instructions: Your heart and lung evaluation was unremarkable in the emergency room. For pain you may take Tylenol (acetaminophen) up to 1000 mg every 6 hours as needed. You may also try taking Tums or the generic equivalent per package instructions. Start Protonix as prescribed. Take daily until otherwise instructed. Please schedule follow-up appointment with Dr. Grissom by calling his office Friday. Avoid the following: Eating large meals, eating close to bedtime, caffeine, carbonation, chocolate, citrus fruits and juices, tomato products, NSAID medications such as ibuprofen or naproxen, tobacco, alcohol, vaping, marijuana, spicy foods, fatty or greasy foods, or anything else you know irritates your chest or stomach. By following these instructions and taking the Protonix antacid medication, you should have gradual improvement of your pain over the next several days. Elevating your head and shoulders when you sleep at night can also be helpful. Return to the ER if you have worsening symptoms despite following these instructions. All discharge instructions reviewed with patient and/or family. Voiced understanding. Scripts Pantoprazole Sodium (Protonix) 40 Mg Tablet. 40 MG PO DAILY, #30 TAB Prov: RICH MCCOLLUM MD 05/05/23 Copy Copies To 1: ZULY GRISSOM MD, JOSHUA T MD May 05, 2023 01:09
[2023-05-05] MEDS ORDERED: LIDOCAINE 2% VISCOUS 15 ML UDC PO ONE (01:15)
[2023-05-05] MEDS ORDERED: ONDANSETRON INJECTION 4 MG/2 ML (SDV) IVP ONE (01:15)
[2023-05-05] MEDS ORDERED: ANTACID SUSPENSION 30 ML UDC PO ONE (01:15)
[2023-05-05] MEDS ORDERED: PANTOPRAZOLE 40 MG TABLET PO ONE (01:45)
[2023-05-05] MEDS ORDERED: PANT40TA2 PO (01:59)
[2023-05-05 02:00] VITALS: BP 146/86
--- NOTE | 2023-05-05 06:51 | Diagnostic Imaging Report ---
INDICATION: Pleuritic chest pain. TIME OF EXAM: 1:20 AM. COMPARISON: No prior studies are available for comparison. FINDINGS: The heart size is normal. The pulmonary vascularity is unremarkable. The lungs are clear. No infiltrate, effusion, or pneumothorax is detected. IMPRESSION: No acute cardiopulmonary process is detected. Dictated by: Dictated on workstation # [id number]
== END 2023-05-05 02:00 | disposition home or self-care (01) ==
LOC: EDUNIT# 00:46 → ER 00:49
DX: R07.81 Pleurodynia (principal); F17.290 Nicotine dependence, other tobacco product, uncomplicated
CPT/HCPCS: 36415; 71046; 84484; 93005; 93041

== ENCOUNTER 2023-07-01 18:50 | Emergency (ER) | payer OTHER ==
[~2023-07-01] VITALS: Ht 184 cm; Wt 123.0 kg
[~2023-07-01 18:50] MED LIST changes: +PANT40TA2 PO
[2023-07-01] MEDS ORDERED: KETOROLAC INJ 30 MG/ML VIAL IVP STA (19:02)
[2023-07-01] MEDS ORDERED: ASPIRIN 81 MG CHEWABLE TABLET PO STA (19:02)
--- NOTE | 2023-07-01 19:07 | ED Chest Pain ---
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 PT WAS LAYING DOWN WHEN THE PAIN STARTED, PAIN IS WORSE ON MOVEMENT, LIGHTHEADED Source: patient, EMS Exam Limitations: no limitations History of Present Illness Date Seen by Provider: Jul 01, 2023 Time Seen by Provider: 18:55 Initial Comments Here with report of intermittent chest pain over the last 3 weeks but worse over the last hour. He did take Tylenol about an hour and a half ago for the pain and that did not help. Ultimately called EMS because of the pain. States that it central upper chest and sharp and stabbing and 7 out of 10. Somewhat reproducible pain. 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 He does vape. Denies nausea or vomiting. Denies other illness symptoms. No reported sweating or weakness. He has been seen previously with other providers and was recommended to follow-up with cardiology which she has not done as he has been working. He states that he will likely do that tomorrow. He does report lightheadedness and pain is worse with moving. EMS reports normal vital signs with normal blood sugar and normal sinus rhythm on twelve-lead EKG on their evaluation. He has actually been seen for similar twice previously over the last 2 months. Timing/Duration: 1-3 hours, intermittent (3 weeks) Severity/Quality: moderate, sharp, stabbing Location: central Radiation: no radiation Activities at Onset: none ASA po MEDICAL SCIENTIFIC OFFICER: No NTG SL MEDICAL SCIENTIFIC OFFICER: No Associated Symptoms: No abdominal pain, No fever/chills, No nausea/vomiting, No shortness of breath, No weakness Allergies and Home Medications Allergies Coded Allergies: No Known Drug Allergies (Unverified , 11/09/10) Patient Home Medication List Home Medication List Reviewed: Yes Review of Systems Review of Systems Constitutional: see HPI, dizziness; No fever Respiratory: Denies Cough, Denies Shortness of Air Cardiovascular: Chest Pain; Denies Edema Gastrointestinal: Denies Nausea, Denies Vomiting Musculoskeletal: muscle pain; No neck pain Skin: No change in color, No lesions Psychiatric/Neurological: Denies Weakness Endocrine: No Symptoms Reported Past Ugukijk-Wmtzhs-Kmfxrc Hx Patient Social History Use of E-Cig and/or Vaping dev: Yes E-Cig or Vaping type used: Nicotine Substance use?: No Alcohol Use?: No Immunizations Up To Date First/Initial COVID19 Vaccinat: x2 Second COVID19 Vaccination Keo: x2 Third COVID19 Vaccination Date: x2 Seasonal Allergies Seasonal Allergies: No Past Medical History Surgery/Hospitalization HX: depression, ch lower back pain/slipped disc, ANXIETY, GERD Surgeries: Yes (DENTAL 01/05/2020) Respiratory: No Cardiac: No Neurological: No Genitourinary: No Gastrointestinal: No Musculoskeletal: No Endocrine: No HEENT: No Cancer: No Psychosocial: No Family Medical History Reviewed Nursing Family Hx No Pertinent Family Hx Physical Exam Vital Signs Vital Signs - First Documented 07/01/23 18:52 Temp 37.4 Pulse 80 B/P (MAP) 134/84 (101) Pulse Ox 97 O2 Delivery Room Air Capillary Refill : Height, Weight, BMI Height: '" Weight: 119lbs. oz. 53.285656hg; 36.00 BMI Method:Stated General Appearance: No Apparent Distress, WD/WN HEENT: PERRL/EOMI, Pharynx Normal Neck: Non Tender, Supple Respiratory: Lungs Clear, Normal Breath Sounds Cardiovascular: Regular Rate, Rhythm, No Murmur, Other (Reproducible tenderness to the anterior chest wall) Gastrointestinal: Non Tender, Soft Extremity: Normal Range of Motion, Non Tender, No Calf Tenderness, No Pedal E marsha Neurologic/Psychiatric: Alert, Oriented x3 Skin: Normal Color, Warm/Dry Progress/Results/Core Measures Results/Orders Lab Results Laboratory Tests Test 07/01/23 18:53 Range/Units White Blood Count 8.9 4.3-11.0 10^3/uL Red Blood Count 5.26 4.30-5.52 10^6/uL Hemoglobin 16.2 13.3-17.7 g/dL Hematocrit 46 40-54 % Mean Corpuscular Volume 88 80-99 fL Mean Corpuscular Hemoglobin 31 25-34 pg Mean Corpuscular Hemoglobin Concent 35 32-36 g/dL Red Cell Distribution Width 12.1 10.0-14.5 % Platelet Count 196 130-400 10^3/uL Mean Platelet Volume 10.6 9.0-12.2 fL Immature Granulocyte % (Auto) 0 % Neutrophils (%) (Auto) 66 42-75 % Lymphocytes (%) (Auto) 23 12-44 % Monocytes (%) (Auto) 8 0-12 % Eosinophils (%) (Auto) 2 0-10 % Basophils (%) (Auto) 1 0-10 % Neutrophils # (Auto) 5.9 1.8-7.8 10^3/uL Lymphocytes # (Auto) 2.0 1.0-4.0 10^3/uL Monocytes # (Auto) 0.7 0.0-1.0 10^3/uL Eosinophils # (Auto) 0.2 0.0-0.3 10^3/uL Basophils # (Auto) 0.1 0.0-0.1 10^3/uL Immature Granulocyte # (Auto) 0.0 0.0-0.1 10^3/uL D-Dimer 0.29 0.00-0.49 UG/ML Sodium Level 141 135-145 MMOL/L Potassium Level 3.7 3.6-5.0 MMOL/L Chloride Level 105 98-107 MMOL/L Carbon Dioxide Level 25 21-32 MMOL/L Anion Gap 11 5-14 MMOL/L Blood Urea Nitrogen 12 7-18 MG/DL Creatinine 1.06 0.60-1.30 MG/DL Estimat Glomerular Filtration Rate 102 BUN/Creatinine Ratio 11 Glucose Level 108 H 70-105 MG/DL Calcium Level 9.2 8.5-10.1 MG/DL Corrected Calcium 8.9 8.5-10.1 MG/DL Total Bilirubin 0.7 0.1-1.0 MG/DL Aspartate Amino Transf (AST/SGOT) 20 5-34 U/L Alanine Aminotransferase (ALT/SGPT) 25 0-55 U/L Alkaline Phosphatase 59 40-136 U/L Troponin I < 0.028 <0.028 NG/ML C-Reactive Protein High Sensitivity 0.09 0.00-0.50 MG/DL Total Protein 7.4 6.4-8.2 GM/DL Albumin 4.4 3.2-4.5 GM/DL My Orders Orders - DILAN GLASER MD Ekg Tracing (07/01/23 18:52) Cbc And Automated Diff (07/01/23 19:02) Comprehensive Metabolic Panel (07/01/23 19:02) Hs C Reactive Protein (07/01/23 19:02) Fibrin Degradation Products (07/01/23 19:02) Troponin I Anderson (07/01/23 19:02) Chest 1 View, Ap/Pa Only (07/01/23 19:02) Aspirin Chewable Tablet (Aspirin Chewabl (07/01/23 19:02) Ketorolac Injection (Ketorolac Injection (07/01/23 19:02) Ns Iv 1000 Ml (Ns Iv 1000 Ml) (07/01/23 19:15) Medications Given in ED Current Medications Medications Dose Ordered Sig/Louie Route Start Time Stop Time Status Last Admin Dose Admin Sodium Chloride 1,000 ml @ 0 mls/hr Q0M ONCE IV 07/01/23 19:15 07/01/23 19:16 DC 07/01/23 19:12 0 MLS/HR Vital Signs/I&O 07/01/23 18:52 Temp 37.4 Pulse 80 B/P (MAP) 134/84 (101) Pulse Ox 97 O2 Delivery Room Air Blood Pressure Mean: 101 Progress Progress Note : Progress Note Seen and evaluated. IV, labs including CBC, CMP, CRP, troponin and D-dimer. We will get EKG and chest x-ray. ASA 324 mg p.o. and Toradol 30 mg IV ordered. Normal saline 1 L bolus ordered. Monitor patient. Differential diagnosis includes cardiac event, pulmonary realism, lung injury including pleurisy, costochondritis, musculoskeletal pain 1946: Patient is feeling a little better with respect to chest pain. I have reviewed his labs and CBC is normal and CMP is normal with negative troponin and negative CRP. D-dimer is also negative. Chest x-ray reviewed by me shows no acute infiltrate or other abnormalities on my interpretation. Radiology report agrees. I did talk with the patient about the normal findings and he will follow-up with his primary care doctor, Dr. Grissom and I will send him a copy of the note. He will also try to follow-up with cardiology. He asked for work note through Friday with return on Friday to give him time to follow-up with doctors since he has had this chest pain for a couple months now. I will go ahead and write for that. Discharged home with return precautions. Patient verbalized understanding of instructions and agreement with plan. Initial ECG Impression Date: Jul 01, 2023 Initial ECG Impression Time: 19:00 Initial ECG Rate: 80 Initial ECG Rhythm: Normal Sinus Initial ECG Impression: Normal Comment Sinus rhythm with normal axis. No evidence of ST elevation OK. Interpreted by me. Diagnostic Imaging Diagonstic Imaging: Xray Plain Films/CT/US/NM/MRI: chest Comments [facility]. [place], [place] NAME: DILAN VALDIVIA [facility] REC#: [id number] PT STATUS: REG ER : 2000 PHYSICIAN: DILAN GLASER MD ADMIT DATE: 07/01/23/ER Signed Date of Exam:07/01/23 CHEST 1 VIEW, AP/PA ONLY INDICATION: Chest pain. Time of Exam: 7:32 PM Correlation is made with prior chest of 05/25/2023. FINDINGS: The heart size is normal. The pulmonary vascularity is unremarkable. The lungs are clear. No infiltrate, effusion or pneumothorax is detected. IMPRESSION: No acute cardiopulmonary process is detected. Dictated by: Dictated on workstation # [id number] Dict: 07/01/231936 Trans: 07/01/231940 REPLACED BY [facility] [id number] Interpreted by: TORRES PEREA MD Electronically signed by: TORRES PEREA MD 07/01/231940 Reviewed: Reviewed by Me Departure Impression Primary Impression: Chest pain Qualified Codes: R07.9 - Chest pain, unspecified Additional Impression: Chest wall pain Disposition: 01 HOME, SELF-CARE Condition: Stable Departure-Patient Inst. Decision time for Depature: 19:49 Referrals: MOE LUNDBERG MD FACP [facility] ZULY GRISSOM MD (PCP/Family) Primary Care Physician PETE VARGAS MD Patient Instructions: Chest Pain, Adult ED Add. Discharge Instructions: All discharge instructions reviewed with patient and/or family. Voiced understanding. You may take ibuprofen 600 mg every 8 hours as needed for pain. You may also take Tylenol/acetaminophen 1000 mg every 6-8 hours as needed for pain. You may take [id number] Pepcid or the generic famotidine 20 mg daily as needed if you are getting stomach upset. Drink plenty of fluids and get plenty of rest. It is very important that you follow-up with your primary care doctor for recheck and further evaluation and you should also follow-up with Dr. Vargas or other medical assistant internal medicine listed or of your choosing for recheck and further evaluation as well. Return for worse pain, fever, vomiting, weakness, breathing problems or other concerns as needed. Work/School Note: Work Release Form Date Seen in the Emergency Department: Jul 01, 2023 Return to Work: Jul 05, 2023 Restrictions: No Restrictions Copy Copies To 1: ZULY GRISSOM MD, TIMOTHY D MD Jul 01, 2023 19:07
[2023-07-01 19:09] LABS: BASOPHILS # (AUTO) 0.1 10^3/uL (0.0-0.1); BASOPHILS % (AUTO) 1 % (0-10); EOSINOPHILS # (AUTO) 0.2 10^3/uL (0.0-0.3); EOSINOPHILS % (AUTO) 2 % (0-10); HEMATOCRIT 46 % (40-54); HEMOGLOBIN 16.2 g/dL (13.3-17.7); LYMPHOCYTES % (AUTO) 23 % (12-44); MEAN CORPUSCULAR HEMOGLOBIN 31 pg (25-34); MEAN CORPUSCULAR HGB CONC 35 g/dL (32-36); MEAN CORPUSCULAR VOLUME 88 fL (80-99); MEAN PLATELET VOLUME 10.6 fL (9.0-12.2); MONOCYTES # (AUTO) 0.7 10^3/uL (0.0-1.0); MONOCYTES % (AUTO) 8 % (0-12); NEUTROPHILS # (AUTO) 5.9 10^3/uL (1.8-7.8); NEUTROPHILS % (AUTO) 66 % (42-75); PLATELET COUNT 196 10^3/uL (130-400); WHITE BLOOD COUNT 8.9 10^3/uL (4.3-11.0)
[2023-07-01 19:15] LABS: ALBUMIN 4.4 GM/DL (3.2-4.5); CHLORIDE 105 MMOL/L (98-107); POTASSIUM 3.7 MMOL/L (3.6-5.0); SODIUM 141 MMOL/L (135-145)
[2023-07-01] MEDS ORDERED: NS IV 1000 ML 1,000 ML IV ONE (19:15)
[2023-07-01 19:16] LABS: CALCIUM 9.2 MG/DL (8.5-10.1)
[2023-07-01 19:17] LABS: GLUCOSE 108 MG/DL (70-105)
[2023-07-01 19:18] LABS: TOTAL PROTEIN 7.4 GM/DL (6.4-8.2)
[2023-07-01 19:19] LABS: BILIRUBIN,TOTAL 0.7 MG/DL (0.1-1.0); CARBON DIOXIDE 25 MMOL/L (21-32)
[2023-07-01 19:21] LABS: ALKALINE PHOSPHATASE 59 U/L (40-136); CREATININE SERUM 1.06 MG/DL (0.60-1.30); GFR ESTIMATED 102
[2023-07-01 19:22] LABS: BUN/CREATININE RATIO 11
[2023-07-01 19:24] LABS: ALANINE AMINOTRANSFERASE 25 U/L (0-55)
--- NOTE | 2023-07-01 19:40 | Diagnostic Imaging Report ---
INDICATION: Chest pain. Time of Exam: 7:32 PM Correlation is made with prior chest of 05/25/2023. FINDINGS: The heart size is normal. The pulmonary vascularity is unremarkable. The lungs are clear. No infiltrate, effusion or pneumothorax is detected. IMPRESSION: No acute cardiopulmonary process is detected. Dictated by: Dictated on workstation # [id number]
[2023-07-01 20:03] VITALS: BP 145/87
== END 2023-07-01 20:10 | disposition home or self-care (01) ==
LOC: EDUNIT# 18:50 → ER 18:52
DX: R07.89 Other chest pain (principal); F17.290 Nicotine dependence, other tobacco product, uncomplicated
CPT/HCPCS: 36415; 71045; 80053; 84484; 85025; 85379; 86141; 93005; 96374